=== PATIENT | male | born 1985 | race African-American/Black ===

== ENCOUNTER 2023-09-06 15:47 | Emergency (ER) | payer OTHER ==
[2023-09-06 16:07] VITALS: TEMP 97.6; BMI 26.9
[2023-09-06] MEDS ORDERED: ACETAMINOPHEN 1000 MG/100 ML BAG IVPB ONE (17:29)
[2023-09-06] MEDS ORDERED: SODIUM CHLORIDE 1,000 ML IV STA (17:29)
[2023-09-06] MEDS ORDERED: ACETAMINOPHEN INJECTION 100 ML IVPB ONE ×2 (17:41→18:42)
[2023-09-06 17:58] LABS: BASO % 0.5 % (0-2.0); EOS % 0.7 % (0-4.5); HEMATOCRIT 39.8 % (35.4-49); LYMPH % 16.1 % (8-40); MCH 27.4 pg (25.7-33.7); MCHC 32.6 g/dl (32.0-35.9); MEAN CELL VOLUME 84.2 fl (80-96); MEAN PLT VOLUME 7.1 fl (7.5-11.1); MONO % 5.7 % (3.8-10.2); PLATELET COUNT 346 10^3/uL (134-434); RBC 4.72 M/mm3 (4.00-5.60); RDW 12.3 % (11.9-15.9); WHITE BLOOD COUNT 7.5 K/mm3 (4.0-10.0)
[2023-09-06 18:06] LABS: INR 1.19 (0.83-1.09); PROTHROMBIN TIME (PATIENT) 13.8 SEC (9.7-13.0)
[2023-09-06 18:09] LABS: ACTIVATED PTT 32.7 SECONDS (25.2-36.5)
[2023-09-06 18:23] LABS: CHLORIDE 107 mmol/L (98-107); POTASSIUM 3.8 mmol/L (3.5-5.1); SODIUM 140 mmol/L (136-145)
[2023-09-06 18:26] LABS: ALBUMIN 4.5 g/dl (3.4-5.0); ANION GAP 10 mmol/L (4-13); BLOOD UREA NITROGEN 18.2 mg/dL (7-18); CO2 23 mmol/L (21-32); GLUCOSE,RANDOM 102 mg/dL (74-106)
[2023-09-06 18:29] LABS: CREATININE 1.1 mg/dL (0.55-1.3); SGOT/AST 12 U/L (15-37)
[2023-09-06 18:31] LABS: BILIRUBIN,TOTAL 0.7 mg/dL (0.2-1); TOT PROT 8.4 g/dl (6.4-8.2)
[2023-09-06 18:32] LABS: ALK PHOS 95 U/L (45-117)
[2023-09-06 18:41] LABS: SGPT/ALT < 6 U/L (13-61)
[2023-09-06 20:14] VITALS: BP 108/74; PULSE 75; RESP 16
== END 2023-09-06 20:27 | disposition home or self-care (01) ==
LOC: JER 15:47 → JERFT 15:47 → JER 20:27
PROC: 3E033NZ Introduction of Analgesics, Hypnotics, Sedatives into Peripheral Vein, Percutaneous Approach (ICD-10-PCS; principal; 2023-09-06)
PROC: 3E0337Z Introduction of Electrolytic and Water Balance Substance into Peripheral Vein, Percutaneous Approach (ICD-10-PCS; 2023-09-06)
DX: M79.605 Pain in left leg (principal); X58.XXXA Exposure to other specified factors, initial encounter; Y93.82 Activity, spectator at an event; Y92.219 Unspecified school as the place of occurrence of the external cause
CPT/HCPCS: 36415; 71046-TC-FY; 80053; 83735; 84484; 85025; 85379; 85610; 85730; 93005; 93010; 93971-TC; 99285-25